=== PATIENT | female | born 1970 ===

== ENCOUNTER 2025-04-03 23:37 | Emergency (ER) | payer OTHER ==
[~2025-04-03] VITALS: Ht 152.4 cm; Wt 50.8 kg
[2025-04-04 00:24] LABS: BASOPHILS % 0.2 % (0.0-1.0); EOSINOPHILS % 0.9 % (0.0-6.0); LYMPHOCYTES % 20.6 % (18.0-39.1); MONOCYTES % 5.7 % (4.4-11.3); NEUTROPHILS % 72.2 % (38.7-80.0); RED CELL DISTRIBUTION WIDTH 13.0 % (11.7-14.4)
[2025-04-04 00:36] LABS: EST GLOMERULAR FILTRATION RATE 111.0 ML/MIN (>=60)
[2025-04-04 00:37] VITALS: TEMP 97.9
[2025-04-04] MEDS ORDERED: IOPAMIDOL 370 MG/ML 100 ML INFUS..BTL INJ ONE (01:00)
[2025-04-04 01:02] LABS: LEUKOCYTE ESTERASE ,URINE TRACE (NEGATIVE); PROTEIN,URINE DIPSTICK NEGATIVE (NEGATIVE); URINE UROBILINOGEN 0.2 mg/dL (0.2 - 1)
[2025-04-04 01:38] LABS: EPITHELIAL CELLS,URINE FEW /LPF
[2025-04-04 02:12] VITALS: PULSE 79; RESP 16
[2025-04-04 02:42] VITALS: BP 105/69; PULSE 74; RESP 18; TEMP 98.2; O2SAT 98
[2025-04-04] MEDS ORDERED: CEFDINIR300 MG PO (02:46)
== END 2025-04-04 02:49 | disposition home or self-care (01) ==
LOC: ER 04-04 00:16
DX: N39.0 Urinary tract infection, site not specified (principal); R07.89 Other chest pain; R10.9 Unspecified abdominal pain; I10 Essential (primary) hypertension; E11.9 Type 2 diabetes mellitus without complications; E78.5 Hyperlipidemia, unspecified; Z88.0 Allergy status to penicillin
CPT/HCPCS: 36415; 71045; 74177; 80053; 81001; 84484; 84702; 85025; 93005; 99284; Q9967